=== PATIENT | female | born 1970 | race American Indian/Alaskan Native ===

== ENCOUNTER 2017-08-10 06:46 | Day surgery (SDC) | payer BC ==
[~2017-08-10 06:46] MED LIST: ANCEF/STERILE WATER 2 GM/20 ML 2 GM/20 ML SYRINGE IV NR; NACL 0.9% 1000 ML 1,000 ML IV SCH
[2017-08-10 08:07] LABS: Basophils % (Auto) 0.9 % (0.0-1.8); Eosinophils # (Auto) 0.3 K/mm3 (0.0-0.4); Eosinophils % (Auto) 5.8 % (0.0-4.3); Hematocrit 37.5 % (30.3-42.9); Hemoglobin 12.2 gm/dl (10.1-14.3); Lymphocytes # (Auto) 1.6 K/mm3 (1.2-5.4); Lymphocytes % (Auto) 31.6 % (13.4-35.0); Mean Corpuscular HGB Conc 32 % (30-34); Mean Corpuscular Hemoglobin 30 pg (28-32); Mean Corpuscular Volume 92 fl (79-97); Monocytes # (Auto) 0.3 K/mm3 (0.0-0.8); Monocytes % (Auto) 5.4 % (0.0-7.3); Platelet Count 253 K/mm3 (140-440); Red Blood Count 4.09 M/mm3 (3.65-5.03); Red Cell Distribution Width 14.5 % (13.2-15.2)
[2017-08-10 08:18] LABS: BUN/Creatinine Ratio 18; Blood Urea Nitrogen 11 mg/dL (7-17); Calcium 8.9 mg/dL (8.4-10.2); Hemolysis Index 5
[2017-08-10] MEDS ORDERED: SUBLIMAZE ONE ×2 (08:20→10:15)
[2017-08-10] MEDS ORDERED: HEPARIN/NS 5000 UNIT/500ML(CATH LAB) 500 ML IR ONE ×2 (08:20→09:38)
[2017-08-10 08:23] LABS: INR 0.98 (0.87-1.13)
[2017-08-10 08:24] LABS: Partial Thromboplastin Time 37.1 Sec. (24.2-36.6)
[2017-08-10] MEDS: VERSED ONE ×4 (08:45→09:49)
[2017-08-10] MEDS: XYLOCAINE 2% INFILTRATI ONE ×2 (08:48→09:51)
[2017-08-10] MEDS: SUBLIMAZE ONE ×3 (08:49→09:55)
[2017-08-10] MEDS ORDERED: ANCEF/STERILE WATER 2 GM/20 ML 2 GM/20 ML SYRINGE IV ONE (09:24)
[2017-08-10] MEDS: BENADRYL ONE ×2 (09:49→09:55)
[2017-08-10] MEDS ORDERED: VERSED ONE (10:14)
[2017-08-10] MEDS ORDERED: TORADOL ONE (10:20)
[2017-08-10] MEDS ORDERED: NORCO 5/325 PO PRN (11:21)
[2017-08-10] MEDS ORDERED: MORPHINE IV ONE (13:00)
[2017-08-10 14:08] VITALS: BP 115/74
--- NOTE | 2017-08-11 08:43 | Vascular Lab Report ---
LEFT UPPER EXTREMITY VENOUS DUPLEX: REASON FOR EXAM: Pain of the left upper extremity COMMENTS ON THE LEFT: All arm veins visualized are freely compressible without evidence of internal echogenicity. The subclavian and internal jugular veins are free of thrombus. Flow is spontaneous and phasic throughout. COMMENTS ON THE RIGHT: The subclavian and internal jugular veins are free of thrombus. IMPRESSION: No evidence of acute or chronic deep venous thrombosis in the left upper extremity.
--- NOTE | 2017-08-11 09:28 | Vascular Lab Report ---
MISCELLANEOUS VESSEL IDENTIFICATION: COMMENTS ON THE SCAN: The right popliteal vein was identified and under real-time ultrasound guidance was cannulated. IMPRESSION: Successful ultrasound guided vein cannulation.
--- NOTE | 2017-08-15 09:42 | Operative Report ---
Operative Report Operative Report: Already dictated
--- NOTE | 2017-08-17 09:37 | Operative Report ---
Operative Report Operative Report: EXAM: RIGHT LOWER EXTREMITY VENOGRAM, VENOPLASTY WITH STENT PLACEMENT CLINICAL INDICATION: PATIENT WITH A HISTORY OF RIGHT LOWER EXTREMITY DVT AND SYMPTOMATIC VENOUS HYPERTENSION OF THE RIGHT LOWER EXTREMITY DATE: 08/10/2017 PROCEDURE: Following an explanation of the risks, benefits and alternatives; written informed consent was obtained. The patient was brought to the angiographic suite and placed in prone position on the examination table. Initial ultrasound evaluation of the patient's popliteal fossa demonstrated a patent popliteal vein. The patient's leg was prepped and draped in the usual sterile fashion. 1% lidocaine was used for anesthesia. Under ultrasound guidance, the popliteal vein was cannulated with a 7 cm 18- gauge needle. A 0.035 guidewire was advanced proximally under fluoroscopy. The needle was removed and exchanged for a 5 Tamazight sheath. Contrast was then injected through the sheath. 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 There is extensive collateral formation allowing venous drainage in the leg. A variety of catheters and guidewires were utilized in an attempt across this occlusion about success. Access in the right leg was then obtained and it antegrade fashion from the right groin at the common femoral vein under ultrasound guidance using a 7 cm 18 -gauge needle and 0.035 guidewire. An additional 5 Tamazight sheath was placed antegrade. Contrast was injected through the sheath was demonstrates occlusion of the femoral vein as described. Attempts to cannulate the femoral vein in this direction were also unsuccessful secondary to chronic occlusion. Contrast was then injected and imaging of the central veins was obtained. There is an approximately 60% stenosis involving the right common iliac vein and external iliac vein. The sheath was then reversed and directed towards the iliac veins under fluoroscopy. The sheath was then upsized with) sheath. Given the degree of stenosis and the symptomatic venous hypertension of the right lower extremity, a decision was made to place a stent across this lesion. An 18 mm x 90 mm stent was then deployed across the lesion and seated using a 16 mm balloon. Post stent deployment imaging demonstrated reduction of the stenosis to less than 10%. At this point, the catheters, guidewires and sheaths were removed and hemostasis achieved in the groin in the popliteal fossa using manual compression. Sterile dressings were then applied. The patient tolerated the procedure well. There were no immediate post procedure competitions. Conscious sedation was performed under the guidance of radiologic nursing. Continuous cardiopulmonary monitoring was utilized. 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 2) Venoplasty with stent placement of the right common iliac vein.
--- NOTE | 2017-08-17 09:39 | Short Stay Summary ---
Short Stay Documentation Date of service: 08/10/17 - History Principal diagnosis: Venous hypertension and vein compression H&P: obtained from office - Allergies and Medications Current Medications: Allergies No Known Allergies Allergy (Unverified 08/10/17 06:47) Home Medications Medication Instructions Recorded Confirmed Last Taken Type Enoxaparin [Lovenox] 70 mg SQ BID 08/10/17 08/10/17 08/10/17 06:05 History HYDROcodone/APAP 10-325 [[place] 1 each PO Q6HR PRN #45 tablet 08/10/17 Unknown Rx 10/325] - Brief post op/procedure progress note Date of procedure: 08/17/17 Pre-op diagnosis: vein compression Post-op diagnosis: same Procedure: venoplasty and stent placement Anesthesia: local Surgeon: NAE BETTENCOURT Estimated blood loss: minimal Pathology: none Condition: stable - Disposition Condition at discharge: Good Disposition: [id number] TO HOME OR SELFCARE Short Stay Discharge Plan Activity: advance as tolerated Weight Bearing Status: Weight Bear as Tolerated Diet: regular Wound: keep clean and dry, per your surgeon's advice Additional Instructions: Follow up with Dr. Bettencourt in 2 weeks. Follow up with Orthopedist doctor if left upper arm pain continues. Follow up with: SARAN ROSE MD [Primary Care Provider] - 7 Days Forms: Work/School Excuse Out Patient, Post Arteriogram Instruct, Post Sedation D/C Instructions Prescriptions: HYDROcodone/APAP 10-325 [[place] 10/325] 1 each PO Q6HR PRN #45 tablet PRN Reason: Pain
== END 2017-08-10 14:50 | disposition home or self-care (01) ==
LOC: CATHLABREC 06:46
PROVIDERS: ATTEND Radiology Diagnostic Radiology
DX: I87.1 Compression of vein (principal); I87.2 Venous insufficiency (chronic) (peripheral); I87.301 Chronic venous hypertension (idiopathic) without complications of right lower extremity; Z86.718 Personal history of other venous thrombosis and embolism; Z79.01 Long term (current) use of anticoagulants; Z98.890 Other specified postprocedural states
CPT/HCPCS: 36415; 37238; 37239; 75820; 76937; 80048; 85025; 85610; 85730; 93971; 96374; 99156; 99157; C1725; C1751; C1769; C1876; C1894; J0690; J1200; J1644; J1885; J2250; J2270; J3010; J7030; Q9967